=== PATIENT | female | born 1985 | race Two or more races ===

== ENCOUNTER 2019-03-09 15:25 | Emergency (ER) | payer MEDICAID, OTHER ==
[~2019-03-09] VITALS: Ht 167.6 cm; Wt 96.6 kg
[2019-03-09 15:56] VITALS: BP 150/87
[2019-03-09] MEDS ORDERED: KETOROLAC TROMETHAMINE INJ 60 MG/2 ML VIAL IM ONE (17:00)
[2019-03-09] MEDS ORDERED: IBUPROFEN 600 MG TABLET PO ONE ×2 (18:05→18:30)
== END 2019-03-09 18:32 | disposition home or self-care (01) ==
LOC: ER 15:28
DX: S63.682A Other sprain of left thumb, initial encounter (principal); M25.511 Pain in right shoulder; V89.2XXA Person injured in unspecified motor-vehicle accident, traffic, initial encounter; Y93.89 Activity, other specified; Y92.89 Other specified places as the place of occurrence of the external cause; Y99.0 Civilian activity done for income or pay
CPT/HCPCS: 73030-TC; 73130-TC